=== PATIENT | female | born 1930 | race Two or more races ===

== ENCOUNTER 2016-08-30 18:45 | Inpatient (IN) | payer MEDICARE ==
--- NOTE | ~2016-08-30 | CN ---
Consultation Report [facility] [address] [place]. [address] NAME: BAY MCNAMARA : 32 STATUS : ADM IN [facility]#: [id number] AGE: 86 ADM/REG DATE : 08/30/16 MR#: [id number] REPORT SERV DATE: 08/31/16 DICTATED BY: ROGER CRANE DATE: 08/31/16 REPORT STATUS : Draft TRANSCRIBED BY: NIKITA DATE: 08/31/16 ELECTROPHYSIOLOGY CONSULTATION DATE OF CONSULTATION: PRIMARY JOINT CUTTER: Eduin Navarro M.D. INDICATIONS: Syncope, third-degree AV block. HISTORY OF PRESENT ILLNESS: Aby Mcnamara is a pleasant 86-year-old female with a history of chronic left bundle-branch block conduction pattern and reported structurally normal heart with no coronary disease, who presents after an episode of syncope. She was seen in the office yesterday by Dr. Navarro and admitted to the hospital today. She was apparently putting up the dishes. She slumped to the floor. She was out for probably several seconds when she came to. She states that she had apparently been feeling bad for about three weeks. She was brought to the office yesterday, where she was found to have a complete heart block with idioventricular escape rhythm, blood pressure was stable, and she was sent to [facility] for evaluation. She has no complaints of chest pain. No orthopnea or PND, but again fatigue for several weeks and syncope recently. PAST MEDICAL HISTORY: Chronic left bundle-branch block conduction pattern, hypertension, dyslipidemia, diabetes. HOME MEDICATIONS: Amlodipine, vitamin D, folic acid, Hyzaar, Deltasone. ALLERGIES: NONE KNOWN. SOCIAL HISTORY: Never a smoker. No alcohol. FAMILY HISTORY: Reviewed and noncontributory to the present issue. REVIEW OF SYSTEMS: As per the HPI. Otherwise, all other review of systems negative. PHYSICAL EXAMINATION: VITAL SIGNS: Blood pressure of 186/50, pulse is 25, respiratory rate 16. The patient is afebrile. GENERAL: Appears stated age, no distress. EYES: Sclerae anicteric. No arcus senilis. MOUTH: Oral mucosa moist. Lips acyanotic. NECK: Jugular venous pressure normal. No carotid bruits. LUNGS: Clear to auscultation bilaterally. Normal inspiratory effort. CARDIAC: Irregular rhythm with a 2/6 systolic ejection murmur. ABDOMEN: Soft, nondistended, nontender. Consultation Report [facility] [id number] [place]. [address] NAME: ABY MCNAMARA : 32 STATUS : ADM IN [facility]#: [id number] AGE: 86 ADM/REG DATE : 08/30/16 MR#: [id number] REPORT SERV DATE: 08/31/16 DICTATED BY: ROGER CRANE DATE: 08/31/16 REPORT STATUS : Draft TRANSCRIBED BY: NIKTIA DATE: 08/31/16 EXTREMITIES: No edema. SKIN: Warm and dry. NEURO/PSYCH: Alert and oriented. Nonfocal. Mood appropriate. DATA: Sodium is 137, potassium 3.7, creatinine 1.02. Hemoglobin is 11.4. Troponin 0.05, repeat is 0.07. TSH is 0.3. Telemetry is complete AV block. EKG is complete AV block with a ventricular escape rhythm, 26 beats per minute. IMPRESSION: 1. Third-degree AV block. 2. Syncope and fatigue. 3. Systolic ejection murmur. 4. Hypertension. RECOMMENDATIONS: We will plan to proceed with implantation of a dual-chamber cardiac pacing system today. I have discussed this with the patient and her daughter addressing rationale, logistics, and risks. Risks include, but not limited to bleeding, infection, vascular complications, failure to place lead, lead dislodgement, and pneumothorax. All questions are answered, and the patient and daughter wished to proceed. KALEE/NIKITA Roger Crane M.D. / [id number] CC: Malachi Ochoa M.D.
[2016-08-30 18:21] LABS: BASOPHILS 0 %; EOSINOPHILS 0 %; ER CBC TAT 0 Hrs 03 Mins; HEMATOCRIT 36.9 % (36.0-48.0); HEMOGLOBIN 12.5 g/dL (12.0-16.0); IMMATURE GRANULOCYTES 0.4 %; IMMATURE GRANULOCYTES ABSOLUTE 0.05 10/3/uL (0.0-0.11); LYMPHOCYTES 9.7 %; LYMPHOCYTES ABSOLUTE 1.15 10/3/uL (0.67-4.30); MEAN CORPUS HGB CONC 33.9 g/dL (32.0-36.0); MEAN CORPUSCULAR HEMOGLOB 29.1 pg (26.0-34.0); MEAN PLATELET VOLUME 9.5 fL (9.2-13.0); MONOCYTES 5.8 %; MONOCYTES ABSOLUTE 0.69 10/3/uL (0.21-1.20); NEUTROPHILS 84.1 %; NEUTROPHILS ABSOLUTE 10.02 10/3/uL (2.02-8.40); PLATELET COUNT 301 10/3/uL (150-400); RBC DISTRIBUTION WIDTH 14.2 % (12.0-16.0); RED CELL COUNT 4.29 10/6/uL (4.0-5.6); WHITE BLOOD CELLS 11.9 10/3/uL (4.5-10.5)
[2016-08-30 18:22] LABS: MANUAL DIFF NO %
[2016-08-30 18:35] LABS: INTERNATIONAL NORMAL RATI 1.1 UNITS (-); PARTIAL THROMBO TIME 24.3 SEC (22.5-37.2); PROTIME (NOT ORD) 13.9 SEC (12.0-14.5)
[2016-08-30 18:46] LABS: BUN (BLOOD UREA NITROGEN) 44 MG/DL (6-23); CALCIUM, SERUM 9.7 MG/DL (8.5-10.4); CHLORIDE, SERUM 103 MMOL/L (96-112); CO2 (CARBON DIOXIDE) 26 MMOL/L (24-34); CREATININE 1.24 MG/DL (0.55-1.02); GFR AFRICAN AMERICAN 46 ML/MIN (>=60); GFR NON AFRICAN AMERICAN 40 ML/MIN (>=60); GLUCOSE, SERUM 170 MG/DL (60-99); POTASSIUM, SERUM 4.1 MMOL/L (3.5-5.3); SODIUM, SERUM 138 MMOL/L (135-148); ULTRASENSITIVE TSH 0.305 MCIU/ML (0.358-3.740)
[2016-08-30 18:48] LABS: CHEST PAIN PROFILE TAT 0 Hrs 30 Mins; TROPONIN I 0.05 NG/ML (<0.05)
[2016-08-30] MEDS ORDERED: NORV10 PO (19:17)
[2016-08-30] MEDS ORDERED: HYZAAR 100/25 T1 TAB PO (19:17)
[2016-08-30] MEDS ORDERED: P5 PO (19:17)
[2016-08-30] MEDS ORDERED: FOLIC PO (19:18)
[2016-08-30] MEDS ORDERED: VITAMIN D1000 UNI1 PO (19:18)
[2016-08-31 02:11] LABS: BASOPHILS 0 %; EOSINOPHILS 0 %; HEMATOCRIT 34.3 % (36.0-48.0); HEMOGLOBIN 11.4 g/dL (12.0-16.0); IMMATURE GRANULOCYTES 0.4 %; IMMATURE GRANULOCYTES ABSOLUTE 0.04 10/3/uL (0.0-0.11); LYMPHOCYTES 10.6 %; LYMPHOCYTES ABSOLUTE 1.01 10/3/uL (0.67-4.30); MANUAL DIFF NO %; MEAN CORPUS HGB CONC 33.2 g/dL (32.0-36.0); MEAN CORPUSCULAR HEMOGLOB 28.7 pg (26.0-34.0); MEAN CORPUSCULAR VOLUME 86.4 fL (80-100); MEAN PLATELET VOLUME 9.4 fL (9.2-13.0); MONOCYTES 6.3 %; NEUTROPHILS 82.7 %; NEUTROPHILS ABSOLUTE 7.91 10/3/uL (2.02-8.40); PLATELET COUNT 271 10/3/uL (150-400); RBC DISTRIBUTION WIDTH 14.1 % (12.0-16.0); RED CELL COUNT 3.97 10/6/uL (4.0-5.6); WHITE BLOOD CELLS 9.6 10/3/uL (4.5-10.5)
[2016-08-31 02:31] LABS: CALCIUM, SERUM 9.2 MG/DL (8.5-10.4); CHLORIDE, SERUM 108 MMOL/L (96-112); CO2 (CARBON DIOXIDE) 25 MMOL/L (24-34); CREATININE 1.02 MG/DL (0.55-1.02); GFR AFRICAN AMERICAN 58 ML/MIN (>=60); GFR NON AFRICAN AMERICAN 50 ML/MIN (>=60); GLUCOSE, SERUM 148 MG/DL (60-99); POTASSIUM, SERUM 3.7 MMOL/L (3.5-5.3); SODIUM, SERUM 137 MMOL/L (135-148)
[2016-08-31 02:41] LABS: BUN (BLOOD UREA NITROGEN) 34 MG/DL (6-23); TROPONIN I 0.07 NG/ML (<0.05)
[2016-09-01 05:03] LABS: BASOPHILS 0.1 %; BASOPHILS ABSOLUTE 0.01 10/3/uL (0.0-0.16); EOSINOPHILS 0 %; HEMOGLOBIN 12.4 g/dL (12.0-16.0); IMMATURE GRANULOCYTES 0.6 %; IMMATURE GRANULOCYTES ABSOLUTE 0.06 10/3/uL (0.0-0.11); LYMPHOCYTES 10.3 %; LYMPHOCYTES ABSOLUTE 1.02 10/3/uL (0.67-4.30); MEAN CORPUS HGB CONC 32.8 g/dL (32.0-36.0); MEAN CORPUSCULAR HEMOGLOB 28.5 pg (26.0-34.0); MEAN CORPUSCULAR VOLUME 86.9 fL (80-100); MEAN PLATELET VOLUME 9.6 fL (9.2-13.0); MONOCYTES 8.5 %; MONOCYTES ABSOLUTE 0.85 10/3/uL (0.21-1.20); NEUTROPHILS 80.5 %; NEUTROPHILS ABSOLUTE 8.01 10/3/uL (2.02-8.40); PLATELET COUNT 234 10/3/uL (150-400); RED CELL COUNT 4.35 10/6/uL (4.0-5.6)
[2016-09-01 05:04] LABS: HEMATOCRIT 37.8 % (36.0-48.0); MANUAL DIFF NO %
[2016-09-01 05:16] LABS: BUN (BLOOD UREA NITROGEN) 31 MG/DL (6-23); CALCIUM, SERUM 9.2 MG/DL (8.5-10.4); CHLORIDE, SERUM 105 MMOL/L (96-112); CO2 (CARBON DIOXIDE) 29 MMOL/L (24-34); CREATININE 0.99 MG/DL (0.55-1.02); GFR AFRICAN AMERICAN 60 ML/MIN (>=60); GFR NON AFRICAN AMERICAN 52 ML/MIN (>=60); POTASSIUM, SERUM 3.8 MMOL/L (3.5-5.3); SODIUM, SERUM 143 MMOL/L (135-148)
[2016-09-01 05:17] LABS: GLUCOSE, SERUM 102 MG/DL (60-99)
[2016-09-01] MEDS ORDERED: APRES25 PO (08:52)
[2016-09-01] MEDS ORDERED: ULTRAM50 PO (08:53)
== END 2016-09-01 11:30 | disposition home or self-care (01) | DRG 243 ==
LOC: ER 18:45 → 5NO 19:47
PROVIDERS: Emergency Medicine
PROC: 0JH606Z Insertion of Pacemaker, Dual Chamber into Chest Subcutaneous Tissue and Fascia, Open Approach (ICD-10-PCS; principal; 2016-08-31)
PROC: 02H63JZ Insertion of Pacemaker Lead into Right Atrium, Percutaneous Approach (ICD-10-PCS; 2016-08-31)
PROC: 02HK3JZ Insertion of Pacemaker Lead into Right Ventricle, Percutaneous Approach (ICD-10-PCS; 2016-08-31)
DX: I44.2 Atrioventricular block, complete (principal); N17.9 Acute kidney failure, unspecified; E11.9 Type 2 diabetes mellitus without complications; M06.9 Rheumatoid arthritis, unspecified; I10 Essential (primary) hypertension; E78.5 Hyperlipidemia, unspecified
CPT/HCPCS: 33208; 71010; 80048; 82962; 83735; 84443; 84484; 85025; 85610; 85730; 93005; 99285; A9270-GY; C1769; C1785; C1892; C1894; C1898; G0463; J0690; J1940; J3010